=== PATIENT | male | born 1955 | race Caucasian/White ===

== ENCOUNTER → 2019-07-28 10:07 | Outpatient (CLI) | payer BC ==
--- NOTE | 2019-07-30 15:25 | ST ---
PATIENT:ROGER HICKS MEDICAL RECORD: [id number] SEX: M LOCATION:[facility] ORDER #: ADMISSION DATE: 07/28/19 AGE OF PATIENT: 64 REFERRING PHYSICIAN: INTERPRETING PHYSICIAN: ZAHEER MENA MD DATE OF SERVICE: 07/28/2019 PROCEDURE: Nuclear stress test. INDICATION: Chest pain, hypertension, shortness of breath. TECHNIQUE: He was exercised on standard Lexiscan protocol with 27 mCi of sestamibi injected at peak stress, 9 mCi used previously for rest images. FINDINGS: Gated SPECT reveals preserved ejection fraction at 62% with good wall motion and thickening and brightening throughout all segments. SPECT imaging Cardiolite was used as myocardial fusion agent. There is homogeneous uptake throughout all segments at rest and stress with no evidence of inducible ischemia or previous infarction. OVERALL IMPRESSION: 1. This is a normal nuclear stress test with no evidence of inducible ischemia or previous infarction. 2. Gated SPECT reveals a preserved ejection fraction at 62%. In this patient with ongoing symptomatology, the current scan does not suggest the presence of hemodynamically significant coronary artery disease. Evaluate noncardiac etiology of chest pain. TRANSINT:[id number] Voice Confirmation ID: [id number] DOCUMENT ID: [id number] ZAHEER MENA MD at 1525 CC: [id number] HERNANDEZ [id number] DICTATION DATE: 07/28/19 1623 CHUTE BOSS: 07/29/19 0741 [facility] CLI 07/28/19 [facility] [address] [place] [address]
--- NOTE | 2019-07-30 15:25 | EC ---
PATIENT:ROGER HICKS DATE OF SERVICE: 07/28/19 SEX: M MEDICAL RECORD: [id number] DATE OF : [birth year] LOCATION:[facility] AGE OF PATIENT: 64 ADMISSION DATE: 07/28/19 REFERRING PHYSICIAN: INTERPRETING PHYSICIAN: ZAHEER PERSON MD ECHOCARDIOGRAM REPORT ECHO CHARGES 4 ECHO COMPLETE Date: 07/28/19 CLINICAL DIAGNOSIS: HTN/CHEST PAIN ECHOCARDIOGRAPHIC MEASUREMENTS (adult normal given) AC root (d.<3.7cm) 3.4 cm LV Septum d (<1.2 cm> 1.0 cm Valve Excursion 1.5 cm LV Septum (systole) 1.3 cm Left Atria (s.<4.0cm> 3.3 cm LVPW d(<1.2cm) 1.2 cm RV (d.<2.3cm) 3.4 cm LVPW (sytole) 1.7 cm LV diastole(<5.6CM) 5.3 cm MV E-F(>70mm/sec) cm LV systole 3.5 cm LVOT Diameter 1.8 cm MV exc.(>10mm) 1.3 cm Est.ejection fraction (50-75%) % DOPPLER: LVIT cm/sec A 83.0 cm/sec E 74.0 cm/sec LA cm/sec RVSP 31 mmHg LVOT 87 cm/sec AOP1/2T m/s Asc. Ao 90 cm/sec RVOT 98 cm/sec RA cm/sec PA 116 cm/sec AV Gradient Peak 3.24 mmHg AV Mean 1.76 mmHg AV Area 2.9 cm MV Gradient Peak 3.87 mmHg MV Mean 1.26 mmHg MV Area cm COMMENTS: Supervisor Pipe Manufacture: Dana VALERO Office Technology Instructor: 1 Dr. Person TAPE# PACS Pericardial Effusion N DATE OF SERVICE: 07/28/2019 FINDINGS: 1. Left ventricular chamber size is within normal limits. Left ventricular systolic function is normal. Overall ejection fraction estimated at 60%. 2. Left atrium, right atrium, and right ventricle chamber sizes are within normal limits. 3. Valvular structures have normal structure and motion. 4. Doppler interrogation reveals mild tricuspid regurgitation, no other valvular insufficiency or stenosis. ECHOCARDIOGRAM REPORT [id number] ROGER HICKS 5. No evidence of pericardial effusion or left ventricular thrombus. TRANSINT:[id number] Voice Confirmation ID: [id number] DOCUMENT ID: [id number] ZAHEER PERSON MD at 1525 CC: [id number] DICTATION DATE: 07/28/19 1634 PHONE OPERATOR: 07/29/19 0225 [facility] CLI 07/28/19 [id number] [place] [address]
== END | disposition home or self-care (01) ==
LOC: D.HCCARDIO 10:07 → D.HCCECHO 11:00
PROVIDERS: ATTEND Internal Medicine Interventional Cardiology
DX: I10 Essential (primary) hypertension (principal); R07.9 Chest pain, unspecified